=== PATIENT | female | born 1985 | race Two or more races ===

== ENCOUNTER 2016-10-16 12:07 | Day surgery (SDC) | payer OTHER ==
[~2016-10-16] VITALS: Ht 167.6 cm; Wt 77.3 kg
[2016-10-16 12:46] VITALS: Ht 167.6 cm; Wt 77.3 kg
[2016-10-16 13:30] VITALS: BP 134/78; PULSE 71; RESP 16
[2016-10-16] MEDS ORDERED: MIDAZOLAM 1 MG/ML 2 ML INJ ONE (13:35)
[2016-10-16] MEDS ORDERED: PROPOFOL 20 ML ONE ×2 (13:35→16:03)
[2016-10-16] MEDS ORDERED: LIDOCAINE 2% (SDV) 5 ML INJ ONE (13:35)
[2016-10-16 13:51] VITALS: BP 108/64; PULSE 81; RESP 16
[2016-10-16 14:20] VITALS: BP 111/67; PULSE 66; RESP 19
--- NOTE | 2016-10-17 03:31 | GILP ---
DATE OF PROCEDURE: 10/16/2016 PROCEDURE: Esophagogastroduodenoscopy with biopsies. BRIEF HISTORY AND INDICATIONS: The patient is being evaluated for dyspepsia and abdominal pain. PREMEDICATION: Monitored anesthesia care by anesthesiologist. SURGEON: Marita Biggs MD INSTRUMENT USED: Olympus panendoscope. TECHNIQUE: After informed consent, with the patient/relatives understanding the procedure, its indic ations, potential risks and complications, including but not limited to: allergic reaction, bleeding , perforation or infection, and after all pertinent questions were answered to the patients satisfac tion, the patient/relatives signed witnessed informed consent. Following this, premedication was administered slowly IV push under careful cardiovascular and respi ratory monitoring with pulse oximetry, automatic blood pressure and phototypesetting equipment monitor. Once the sedative effect was achieved the patient was place in the left lateral decubitus, the panen doscope was introduced and advanced under visual control. Careful examination of the upper gastrointestinal tract, both on insertion as well as withdrawal of the instrument disclosed the following findings: ESOPHAGUS: The distal esophagus shows erythema and edema of the mucosa of a moderate degree. STOMACH: Upon entrance to the stomach, air was insufflated, the gastric swift distended normally. The mucosa of the fundus, body, and antrum of the stomach was carefully examined and shows erythema and edema of the mucosa of a moderate degree. Biopsies were obtained to rule out H. pylori infectio n. PYLORUS: The pylorus appears patent and within normal limits, with no evidence of gastric outlet ob struction. DUODENUM: The duodenal mucosa was carefully examined in the duodenal bulb as well as the second por tion of the duodenum and appears unremarkable with no evidence of duodenitis, ulcer or neoplasm. The instrument was then withdrawn, the patient tolerated the procedure well and was transfer out of the endoscopy suite awake, and in good condition to continue recovery under observation IMPRESSION: 1. Distal esophagitis. 2. Gastritis, rule out Helicobacter pylori infection. Biopsies were obtained. PLAN: The patient will be treated with PPIs. Further recommendation will depend on her clinical co urse as well as review of biopsies. Dictated By: MARITA BIGGS MS/AIDAN Conf#: [id number] DID#: [id number]
== END 2016-10-16 16:33 | disposition home or self-care (01) ==
LOC: GIL 12:07
PROVIDERS: ATTEND Internal Medicine Gastroenterology
DX: K20.8 Other esophagitis (principal)
CPT/HCPCS: 43239; 84703; 88305; 88312; J2250; Z7610